=== PATIENT | male | born 1950 | race Caucasian/White ===

== ENCOUNTER 2020-07-18 12:57 | Inpatient (IN) ==
[2020-07-18] MEDS ORDERED: ALBUTEROL 2.5 MG/3 ML NEB RESP TX STA (14:47)
[2020-07-18] MEDS ORDERED: FUROSEMIDE 40 MG/4 ML VIAL IV STA (14:47)
[2020-07-18 15:22] LABS: Basophils # 0.1 10*3/uL (0.0-0.2); Basophils % 0.9 % (0.0-0.8); Eosinophils # 0.3 10*3/uL (0.0-0.87); Eosinophils % 3.7 % (0.00-10.9); Hematocrit 46.3 VOL% (42.0-52.0); Hemoglobin 14.3 GM/DL (14.0-18.0); Immature Granulocytes % 0.3 %; Immature Granulocytes Absolute 0.03 #; Lymphocytes # 1.3 10*3/uL (1.4-4.0); Mean Corpuscular HGB Conc 30.9 GM/DL (32-36); Mean Corpuscular Volume 101.8 FL (87-102); Mean Platelet Volume 9.4 FL (9.6-12.0); Monocytes % 8.6 % (1.7-12.7); Neutrophils % 71.5 % (38.7-73.9); Platelet Count 289 T/CUMM (130-400); Red Blood Count 4.55 MC/CUMM (3.8-5.5); Red Cell Distribution Width 13.4 % (9.3-17.3); White Blood Count 8.9 T/CUMM (4-12)
[2020-07-18] MEDS ORDERED: LEVOFLOXACIN INJ 500 MG in PREMIX 1 EACH IV STA (15:47)
[2020-07-18] MEDS ORDERED: methylPREDNISolone SOD SUC 125 MG/2 ML VIAL IV STA (15:47)
[2020-07-18 15:48] LABS: Albumin 3.2 G/DL (3.4-5.0); Bilirubin,Total 0.6 MG/DL (0.2-1.0); Calcium 9.1 MG/DL (8.5-10.1); Potassium 4.6 MMOL/L (3.5-5.1); Total Protein 7.8 G/DL (6.4-8.3)
[2020-07-18 15:56] LABS: ABG Base Excess 9.6 MMOL/L (-2.5-2.5); ABG HCO3 33.2 MMOL/L (20-26); ABG PH 7.352 (7.35-7.45); ABG PO2 64.1 MM HG (80-95); ABG TCO2 33.6 MMOL/L (23-27); Allen Test Positive
[2020-07-18 16:01] LABS: ABG PCO2 70.3 MM HG (35-48)
[2020-07-18] MEDS ORDERED: MAGNESIUM SULF RIDER 4 GM in PREMIX 1 EACH IV PRN (16:18)
[2020-07-18] MEDS ORDERED: ACETAMINOPHEN 325 MG TABLET PO PRN (16:18)
[2020-07-18] MEDS ORDERED: MAGNESIUM SULF RIDER 2 GM in PREMIX 1 EACH IV PRN (16:18)
[2020-07-18] MEDS ORDERED: GLUCAGON 1 MG VIAL IM PRN (16:18)
[2020-07-18] MEDS ORDERED: ZALEPLON 5 MG CAPSULE PO PRN (16:18)
[2020-07-18] MEDS ORDERED: ONDANSETRON 4 MG/2 ML VIAL IV PRN (16:18)
[2020-07-18] MEDS ORDERED: DEXTROSE 50% 25 GM/50 ML VIAL IV PRN (16:18)
[2020-07-18] MEDS: ALBUTEROL 2.5 MG/3 ML NEB RESP TX SCH (19:00)
[2020-07-18] MEDS: APIXABAN 5 MG TABLET PO SCH (20:16)
[2020-07-19] MEDS: methylPREDNISolone SOD SUC 40 MG/1 ML VIAL IV SCH ×3 (00:05→15:38)
[2020-07-19] MEDS: ALBUTEROL 2.5 MG/3 ML NEB RESP TX SCH ×4 (00:15→19:36)
[2020-07-19 06:36] LABS: Basophils % 0.1 % (0.0-0.8); Hematocrit 47.7 VOL% (42.0-52.0); Hemoglobin 14.8 GM/DL (14.0-18.0); Immature Granulocytes % 0.6 %; Immature Granulocytes Absolute 0.04 #; Lymphocytes # 0.4 10*3/uL (1.4-4.0); Lymphocytes % 5.9 % (21.2-54.2); Mean Corpuscular Volume 102.6 FL (87-102); Mean Platelet Volume 9.6 FL (9.6-12.0); Monocytes % 1.3 % (1.7-12.7); Neutrophils % 92.1 % (38.7-73.9); Platelet Count 296 T/CUMM (130-400); Red Blood Count 4.65 MC/CUMM (3.8-5.5); Red Cell Distribution Width 13.4 % (9.3-17.3); White Blood Count 7.2 T/CUMM (4-12)
[2020-07-19 07:00] LABS: Lymphocytes 7 % (20-55); Platelet Estimate Normal; Segmented Neutrophils 92 % (50-85); Total Cells Counted 100
[2020-07-19 07:08] LABS: Albumin 3.1 G/DL (3.4-5.0); Bilirubin,Total 0.8 MG/DL (0.2-1.0); Calcium 8.8 MG/DL (8.5-10.1)
[2020-07-19 07:16] LABS: Osmolality,Calculated 274.2 MOS/KG (273-304); Potassium 4.5 MMOL/L (3.5-5.1)
[2020-07-19] MEDS ORDERED: FUROSEMIDE 20 MG/2 ML VIAL IV SCH (08:00)
[2020-07-19] MEDS: amLODIPine 10 MG TABLET PO SCH (08:30)
[2020-07-19] MEDS: PANTOPRAZOLE 40 MG TABLET PO SCH (08:30)
[2020-07-19] MEDS: APIXABAN 5 MG TABLET PO SCH ×2 (08:30→21:46)
[2020-07-19] MEDS ORDERED: FUROSEMIDE 20 MG/2 ML VIAL IV ONE (08:59)
[2020-07-19] MEDS ORDERED: NEBIVOLOL 10 MG TABLET PO SCH (09:00)
[2020-07-19] MEDS ORDERED: ENOXAPARIN 40 MG/0.4 ML SYRINGE SUBCUT SCH (09:00)
[2020-07-19] MEDS ORDERED: METOPROLOL TARTRATE 50 MG TABLET PO SCH (09:37)
[2020-07-19] MEDS ORDERED: AZITHROMYCIN 250 MG TABLET PO ONE (13:03)
[2020-07-19] MEDS: FUROSEMIDE 40 MG/4 ML VIAL IV SCH (15:38)
[2020-07-19] MEDS: LEVOFLOXACIN INJ 750 MG in PREMIX 1 EACH IV SCH (15:39)
[2020-07-19] MEDS ORDERED: METOPROLOL TARTRATE 50 MG TABLET PO ONE (21:00)
[2020-07-20] MEDS: methylPREDNISolone SOD SUC 40 MG/1 ML VIAL IV SCH ×4 (00:38→23:28)
[2020-07-20] MEDS: ALBUTEROL 2.5 MG/3 ML NEB RESP TX SCH ×4 (01:08→19:50)
[2020-07-20 06:13] LABS: Basophils % 0.1 % (0.0-0.8); Hematocrit 46.1 VOL% (42.0-52.0); Hemoglobin 14.1 GM/DL (14.0-18.0); Immature Granulocytes % 0.6 %; Lymphocytes # 0.6 10*3/uL (1.4-4.0); Lymphocytes % 3.6 % (21.2-54.2); Mean Corpuscular HGB Conc 30.6 GM/DL (32-36); Mean Corpuscular Volume 104.5 FL (87-102); Mean Platelet Volume 9.6 FL (9.6-12.0); Monocytes % 3.6 % (1.7-12.7); Neutrophils % 92.1 % (38.7-73.9); Platelet Count 297 T/CUMM (130-400); Red Blood Count 4.41 MC/CUMM (3.8-5.5); Red Cell Distribution Width 13.3 % (9.3-17.3); White Blood Count 16.8 T/CUMM (4-12)
[2020-07-20 06:31] LABS: Calcium 8.8 MG/DL (8.5-10.1); Osmolality,Calculated 277.2 MOS/KG (273-304); Potassium 4.8 MMOL/L (3.5-5.1)
[2020-07-20 06:52] LABS: Calcium 8.5 MG/DL (8.5-10.1); Osmolality,Calculated 277.2 MOS/KG (273-304); Potassium 4.6 MMOL/L (3.5-5.1)
[2020-07-20] MEDS: amLODIPine 10 MG TABLET PO SCH (08:48)
[2020-07-20] MEDS: APIXABAN 5 MG TABLET PO SCH ×2 (08:49→20:58)
[2020-07-20] MEDS: PANTOPRAZOLE 40 MG TABLET PO SCH (08:49)
[2020-07-20] MEDS: FUROSEMIDE 40 MG/4 ML VIAL IV SCH ×2 (08:50→15:51)
[2020-07-20] MEDS: AZITHROMYCIN 250 MG TABLET PO SCH (08:53)
[2020-07-20] MEDS ORDERED: NEBIVOLOL 10 MG TABLET PO SCH (09:00)
[2020-07-20 15:27] LABS: Band Neutrophils 4 % (0-10); Lymphocytes 3 % (20-55); Macrocytosis 1+; Platelet Estimate Normal; Segmented Neutrophils 89 % (50-85); Total Cells Counted 100
[2020-07-20] MEDS: LEVOFLOXACIN INJ 750 MG in PREMIX 1 EACH IV SCH (15:52)
[2020-07-21] MEDS: ALBUTEROL 2.5 MG/3 ML NEB RESP TX SCH ×4 (01:24→18:56)
[2020-07-21 07:06] LABS: Basophils % 0.1 % (0.0-0.8); Hematocrit 46.3 VOL% (42.0-52.0); Hemoglobin 14.2 GM/DL (14.0-18.0); Immature Granulocytes % 0.6 %; Immature Granulocytes Absolute 0.09 #; Lymphocytes # 0.5 10*3/uL (1.4-4.0); Lymphocytes % 3.4 % (21.2-54.2); Mean Corpuscular HGB Conc 30.7 GM/DL (32-36); Mean Corpuscular Volume 103.8 FL (87-102); Mean Platelet Volume 9.4 FL (9.6-12.0); Monocytes % 4.3 % (1.7-12.7); Neutrophils % 91.6 % (38.7-73.9); Platelet Count 301 T/CUMM (130-400); Red Blood Count 4.46 MC/CUMM (3.8-5.5); Red Cell Distribution Width 13.4 % (9.3-17.3); White Blood Count 14.3 T/CUMM (4-12)
[2020-07-21 07:08] LABS: Calcium 8.7 MG/DL (8.5-10.1); Potassium 4.4 MMOL/L (3.5-5.1)
[2020-07-21] MEDS: APIXABAN 5 MG TABLET PO SCH ×2 (08:00→20:09)
[2020-07-21 08:05] LABS: Anisocytosis 1+; Band Neutrophils 2 % (0-10); Lymphocytes 2 % (20-55); Macrocytosis 1+; Platelet Estimate Normal; Segmented Neutrophils 90 % (50-85); Stomatocytes Few; Total Cells Counted 100
[2020-07-21] MEDS: FUROSEMIDE 40 MG/4 ML VIAL IV SCH ×2 (08:17→15:22)
[2020-07-21] MEDS: methylPREDNISolone SOD SUC 40 MG/1 ML VIAL IV SCH ×2 (08:17→15:22)
[2020-07-21] MEDS: amLODIPine 5 MG TABLET PO SCH (08:18)
[2020-07-21] MEDS: NEBIVOLOL 10 MG TABLET PO SCH (08:18)
[2020-07-21] MEDS: AZITHROMYCIN 250 MG TABLET PO SCH (08:18)
[2020-07-21] MEDS: PANTOPRAZOLE 40 MG TABLET PO SCH (08:18)
[2020-07-21] MEDS ORDERED: NEBIVOLOL 10 MG TABLET PO SCH (09:00)
[2020-07-21] MEDS: LEVOFLOXACIN INJ 750 MG in PREMIX 1 EACH IV SCH (15:31)
[2020-07-21] MEDS ORDERED: POLYETHYLENE GLYCOL POWDER 17 GM PACK PO PRN (21:13)
[2020-07-22] MEDS: methylPREDNISolone SOD SUC 40 MG/1 ML VIAL IV SCH ×3 (00:18→15:51)
[2020-07-22] MEDS: ALBUTEROL 2.5 MG/3 ML NEB RESP TX SCH ×4 (00:42→19:12)
[2020-07-22 04:25] LABS: Basophils % 0.1 % (0.0-0.8); Hematocrit 47.2 VOL% (42.0-52.0); Hemoglobin 14.4 GM/DL (14.0-18.0); Immature Granulocytes % 0.8 %; Immature Granulocytes Absolute 0.09 #; Lymphocytes # 0.4 10*3/uL (1.4-4.0); Lymphocytes % 3.3 % (21.2-54.2); Mean Corpuscular HGB Conc 30.5 GM/DL (32-36); Mean Corpuscular Volume 103.5 FL (87-102); Mean Platelet Volume 9.6 FL (9.6-12.0); Monocytes % 5.5 % (1.7-12.7); Neutrophils % 90.3 % (38.7-73.9); Platelet Count 295 T/CUMM (130-400); Red Blood Count 4.56 MC/CUMM (3.8-5.5); Red Cell Distribution Width 13.5 % (9.3-17.3); White Blood Count 11.8 T/CUMM (4-12)
[2020-07-22 04:46] LABS: Calcium 8.5 MG/DL (8.5-10.1); Osmolality,Calculated 280.1 MOS/KG (273-304); Potassium 4.4 MMOL/L (3.5-5.1)
[2020-07-22 08:42] LABS: Anisocytosis 1+; Macrocytosis 1+; Platelet Estimate Normal
[2020-07-22] MEDS: amLODIPine 5 MG TABLET PO SCH (08:42)
[2020-07-22] MEDS: APIXABAN 5 MG TABLET PO SCH ×2 (08:42→21:12)
[2020-07-22] MEDS: AZITHROMYCIN 250 MG TABLET PO SCH (08:42)
[2020-07-22] MEDS: NEBIVOLOL 10 MG TABLET PO SCH (08:42)
[2020-07-22] MEDS: PANTOPRAZOLE 40 MG TABLET PO SCH (08:42)
[2020-07-22] MEDS: FUROSEMIDE 40 MG/4 ML VIAL IV SCH (08:43)
[2020-07-22] MEDS ORDERED: guaiFENesin/CODEINE 5 ML LIQUID PO PRN (13:53)
[2020-07-22] MEDS: FUROSEMIDE 40 MG TABLET PO SCH (15:51)
[2020-07-22] MEDS: LEVOFLOXACIN INJ 750 MG in PREMIX 1 EACH IV SCH (15:52)
[2020-07-23] MEDS: ALBUTEROL 2.5 MG/3 ML NEB RESP TX SCH ×4 (00:32→19:35)
[2020-07-23] MEDS: methylPREDNISolone SOD SUC 40 MG/1 ML VIAL IV SCH ×4 (00:36→23:37)
[2020-07-23 06:50] LABS: Basophils % 0.1 % (0.0-0.8); Hematocrit 47.2 VOL% (42.0-52.0); Hemoglobin 14.5 GM/DL (14.0-18.0); Immature Granulocytes % 0.9 %; Immature Granulocytes Absolute 0.09 #; Lymphocytes # 0.4 10*3/uL (1.4-4.0); Lymphocytes % 4.2 % (21.2-54.2); Mean Corpuscular HGB Conc 30.7 GM/DL (32-36); Mean Corpuscular Volume 103.3 FL (87-102); Mean Platelet Volume 9.7 FL (9.6-12.0); Monocytes % 6.3 % (1.7-12.7); Neutrophils % 88.5 % (38.7-73.9); Platelet Count 281 T/CUMM (130-400); Red Blood Count 4.57 MC/CUMM (3.8-5.5); Red Cell Distribution Width 13.3 % (9.3-17.3); White Blood Count 10.6 T/CUMM (4-12)
[2020-07-23 07:13] LABS: Calcium 8.4 MG/DL (8.5-10.1); Potassium 4.1 MMOL/L (3.5-5.1)
[2020-07-23 07:29] LABS: Anisocytosis Slight; Band Neutrophils 3 % (0-10); Hypersegmented Neutrophil Few; Lymphocytes 3 % (20-55); Macrocytosis 1+; Nucleated Red Blood Cells 1 (0-5); Platelet Estimate Normal; Segmented Neutrophils 86 % (50-85); Smudge Cells Few; Stomatocytes 1+; Total Cells Counted 100
[2020-07-23] MEDS: APIXABAN 5 MG TABLET PO SCH ×2 (08:48→20:26)
[2020-07-23] MEDS: PANTOPRAZOLE 40 MG TABLET PO SCH (08:48)
[2020-07-23] MEDS: AZITHROMYCIN 250 MG TABLET PO SCH (08:48)
[2020-07-23] MEDS: NEBIVOLOL 10 MG TABLET PO SCH (08:48)
[2020-07-23] MEDS: amLODIPine 5 MG TABLET PO SCH (08:48)
[2020-07-23] MEDS: FUROSEMIDE 40 MG TABLET PO SCH (08:49)
[2020-07-23] MEDS: LEVOFLOXACIN 750 MG TABLET PO SCH (13:56)
[2020-07-23] MEDS: FUROSEMIDE 20 MG TABLET PO SCH (15:24)
[2020-07-24] MEDS: ALBUTEROL 2.5 MG/3 ML NEB RESP TX SCH ×2 (00:39→07:40)
[2020-07-24 07:53] VITALS: BP 159/79
[2020-07-24] MEDS: APIXABAN 5 MG TABLET PO SCH (08:43)
[2020-07-24] MEDS: PANTOPRAZOLE 40 MG TABLET PO SCH (08:43)
[2020-07-24] MEDS: AZITHROMYCIN 250 MG TABLET PO SCH (08:43)
[2020-07-24] MEDS: FUROSEMIDE 20 MG TABLET PO SCH (08:43)
[2020-07-24] MEDS: NEBIVOLOL 10 MG TABLET PO SCH (08:43)
[2020-07-24] MEDS: methylPREDNISolone SOD SUC 40 MG/1 ML VIAL IV SCH (08:43)
[2020-07-24] MEDS: amLODIPine 5 MG TABLET PO SCH (08:43)
[2020-07-24] MEDS: LEVOFLOXACIN 750 MG TABLET PO SCH (09:36)
== END 2020-07-24 11:15 | disposition home or self-care (01) | DRG 291 ==
LOC: N.ED 12:57 → N.EDINP 16:18 → N.5E 17:30
PROVIDERS: ADMIT Internal Medicine; ATTEND Internal Medicine

== ENCOUNTER 2021-11-12 17:33 | Inpatient (IN) ==
[2021-11-12 18:20] LABS: Basophils % 0.4 % (0.0-0.8); Eosinophils # 0.1 10*3/uL (0.0-0.87); Eosinophils % 2.6 % (0.00-10.9); Hematocrit 43.7 VOL% (42.0-52.0); Hemoglobin 13.4 GM/DL (14.0-18.0); Immature Granulocytes % 0.6 %; Immature Granulocytes Absolute 0.03 #; Lymphocytes # 0.9 10*3/uL (1.4-4.0); Lymphocytes % 18.5 % (21.2-54.2); Mean Corpuscular HGB Conc 30.7 GM/DL (32-36); Mean Corpuscular Volume 104.8 FL (87-102); Monocytes # 0.4 10*3/uL (0.11-0.8); Monocytes % 7.8 % (1.7-12.7); Neutrophils % 70.1 % (38.7-73.9); Platelet Count 266 T/CUMM (130-400); Red Blood Count 4.17 MC/CUMM (3.8-5.5); Red Cell Distribution Width 12.5 % (9.3-17.3)
[2021-11-12 18:48] LABS: Albumin 2.5 G/DL (3.4-5.0); Bilirubin,Total 0.6 MG/DL (0.20-1.00); Calcium 9.2 MG/DL (8.5-10.1); Osmolality,Calculated 275.8 MOS/KG (273-304); Potassium 3.6 MMOL/L (3.5-5.1); Total Protein 7.9 G/DL (6.4-8.2)
[2021-11-12] MEDS ORDERED: PIPERACILLIN/TAZOBACTAM 3,375 MG in SODIUM CHLORIDE 0.9% 100 ML IV STA (18:58)
[2021-11-12] MEDS ORDERED: methylPREDNISolone SOD SUC 125 MG/2 ML VIAL IV STA (18:58)
[2021-11-12] MEDS ORDERED: MORPHINE 2 MG/1 ML SYRINGE IV STA (18:58)
[2021-11-12] MEDS ORDERED: ALBUTEROL/IPRATROPIUM 3 ML NEB RESP TX STA (18:58)
[2021-11-12] MEDS ORDERED: FUROSEMIDE 100 MG/10 ML VIAL IV STA (18:58)
[2021-11-12] MEDS ORDERED: ONDANSETRON 4 MG/2 ML VIAL IV STA (18:58)
[2021-11-12] MEDS ORDERED: ALBUTEROL NEB SOLN 5 MG/ML 20 ML/BOTTLE CONT NEB SCH (19:00)
[2021-11-12] MEDS ORDERED: ALBUTEROL 2.5 MG/3 ML NEB RESP TX ONE (19:09)
[2021-11-12 19:30] LABS: Platelet Estimate Increased
[2021-11-12] MEDS ORDERED: GLUCAGON 1 MG VIAL IM PRN (21:35)
[2021-11-12] MEDS ORDERED: ACETAMINOPHEN 325 MG TABLET PO PRN (21:35)
[2021-11-12] MEDS ORDERED: ONDANSETRON 4 MG/2 ML VIAL IV PRN (21:35)
[2021-11-12] MEDS ORDERED: DEXTROSE 10% 250 ML BAG IV PRN (21:35)
[2021-11-12] MEDS ORDERED: ZALEPLON 5 MG CAPSULE PO PRN (21:35)
[2021-11-12] MEDS: carvediloL 12.5 MG TABLET PO SCH (22:50)
[2021-11-12] MEDS: APIXABAN 5 MG TABLET PO SCH (22:50)
[2021-11-12] MEDS: AZITHROMYCIN INJ 500 MG in SODIUM CHLORIDE 0.9% 250 ML IV SCH (22:50)
[2021-11-13] MEDS: cefTRIAXone 1,000 MG in SODIUM CHLORIDE 0.9% 100 ML IV SCH (01:43)
[2021-11-13 01:55] LABS: Basophils % 0.2 % (0.0-0.8); Eosinophils % 0.4 % (0.00-10.9); Hematocrit 41.3 VOL% (42.0-52.0); Hemoglobin 12.5 GM/DL (14.0-18.0); Immature Granulocytes % 0.6 %; Immature Granulocytes Absolute 0.03 #; Lymphocytes # 0.4 10*3/uL (1.4-4.0); Lymphocytes % 7.2 % (21.2-54.2); Mean Corpuscular HGB Conc 30.3 GM/DL (32-36); Mean Corpuscular Volume 107.3 FL (87-102); Mean Platelet Volume 8.8 FL (9.6-12.0); Monocytes # 0.1 10*3/uL (0.11-0.8); Monocytes % 2.3 % (1.7-12.7); Neutrophils % 89.3 % (38.7-73.9); Platelet Count 278 T/CUMM (130-400); Red Blood Count 3.85 MC/CUMM (3.8-5.5); Red Cell Distribution Width 12.5 % (9.3-17.3); White Blood Count 4.9 T/CUMM (4-12)
[2021-11-13] MEDS ORDERED: MELATONIN 3 MG TABLET PO PRN (02:08)
[2021-11-13] MEDS: ALBUTEROL/IPRATROPIUM 3 ML NEB RESP TX SCH ×3 (02:10→13:16)
[2021-11-13 02:13] LABS: Calcium 9.2 MG/DL (8.5-10.1); Osmolality,Calculated 275.1 MOS/KG (273-304); Potassium 4.1 MMOL/L (3.5-5.1)
[2021-11-13 02:23] LABS: INR 1.1; PT Patient Result 11.8 SECS (10.5-12.0)
[2021-11-13] MEDS ORDERED: methylPREDNISolone SOD SUC 40 MG/1 ML VIAL IV SCH (06:00)
[2021-11-13] MEDS ORDERED: REMDESIVIR 200 MG in SODIUM CHLORIDE 0.9% 210 ML IV ONE (09:00)
[2021-11-13] MEDS ORDERED: PANTOPRAZOLE 40 MG TABLET PO SCH (09:00)
[2021-11-13 11:16] LABS: Ferritin - (MMA) 273.1 ng/ml (22-336)
[2021-11-13] MEDS: FAMOTIDINE 20 MG TABLET PO SCH ×2 (11:24→20:47)
[2021-11-13] MEDS: ZINC GLUCONATE 50 MG TABLET PO SCH (11:24)
[2021-11-13] MEDS: ASCORBIC ACID 500 MG TABLET PO SCH ×2 (11:24→20:47)
[2021-11-13] MEDS: carvediloL 12.5 MG TABLET PO SCH ×2 (11:25→20:47)
[2021-11-13] MEDS: CETIRIZINE 10 MG TABLET PO SCH (11:25)
[2021-11-13] MEDS: DEXAMETHASONE 4 MG/1 ML VIAL IV SCH (11:25)
[2021-11-13] MEDS: CHOLECALCIFEROL 1,000 UNIT TABLET PO SCH (11:25)
[2021-11-13] MEDS: FUROSEMIDE 20 MG TABLET PO SCH (11:25)
[2021-11-13] MEDS: APIXABAN 5 MG TABLET PO SCH ×2 (11:26→20:47)
[2021-11-13] MEDS: amLODIPine 10 MG TABLET PO SCH (11:26)
[2021-11-13] MEDS ORDERED: ALBUTEROL INHALER 18 GM INH PRN (18:32)
[2021-11-13] MEDS: MELATONIN 3 MG TABLET PO SCH (20:46)
[2021-11-13] MEDS: AZITHROMYCIN INJ 500 MG in SODIUM CHLORIDE 0.9% 250 ML IV SCH (21:39)
[2021-11-14] MEDS: cefTRIAXone 1,000 MG in SODIUM CHLORIDE 0.9% 100 ML IV SCH (00:13)
[2021-11-14 06:08] LABS: Basophils % 0.1 % (0.0-0.8); Hemoglobin 12.4 GM/DL (14.0-18.0); Immature Granulocytes % 1.1 %; Immature Granulocytes Absolute 0.11 #; Lymphocytes # 0.9 10*3/uL (1.4-4.0); Lymphocytes % 8.5 % (21.2-54.2); Mean Corpuscular Volume 108.7 FL (87-102); Mean Platelet Volume 8.7 FL (9.6-12.0); Monocytes # 0.7 10*3/uL (0.11-0.8); Monocytes % 6.6 % (1.7-12.7); NRBC # 0.02 10*3/uL; Neutrophils % 83.7 % (38.7-73.9); Platelet Count 311 T/CUMM (130-400); Red Blood Count 3.81 MC/CUMM (3.8-5.5); Red Cell Distribution Width 12.4 % (9.3-17.3); White Blood Count 10.3 T/CUMM (4-12)
[2021-11-14 06:10] LABS: Hematocrit 41.4 VOL% (42.0-52.0)
[2021-11-14 07:16] LABS: Alanine Aminotransferase 17 U/L (16-61); Albumin 2.5 G/DL (3.4-5.0); Alkaline Phosphatase 100 U/L (45-117); Aspartate Amino Transferase 20 U/L (0-37); Blood Urea Nitrogen 22 MG/DL (7-18); Calcium 9.3 MG/DL (8.5-10.1); Potassium 4.9 MMOL/L (3.5-5.1); Sodium 136 MMOL/L (136-145); Total Protein 7.9 G/DL (6.4-8.2)
[2021-11-14 07:17] LABS: Carbon Dioxide 47 MMOL/L (21-32); Chloride 93 MMOL/L (98-107); Glucose 159 MG/DL (74-106)
[2021-11-14] MEDS ORDERED: LORazepam 1 MG TABLET PO PRN (10:28)
[2021-11-14] MEDS: APIXABAN 5 MG TABLET PO SCH ×2 (10:36→22:13)
[2021-11-14] MEDS: amLODIPine 10 MG TABLET PO SCH (10:37)
[2021-11-14] MEDS: FUROSEMIDE 20 MG TABLET PO SCH (10:37)
[2021-11-14] MEDS: ASCORBIC ACID 500 MG TABLET PO SCH ×2 (10:38→22:14)
[2021-11-14] MEDS: CETIRIZINE 10 MG TABLET PO SCH (10:38)
[2021-11-14] MEDS: CHOLECALCIFEROL 1,000 UNIT TABLET PO SCH (10:38)
[2021-11-14] MEDS: FAMOTIDINE 20 MG TABLET PO SCH ×2 (10:39→22:14)
[2021-11-14] MEDS: carvediloL 12.5 MG TABLET PO SCH ×2 (10:40→22:13)
[2021-11-14] MEDS: REMDESIVIR 100 MG in SODIUM CHLORIDE 0.9% 100 ML IV SCH (10:54)
[2021-11-14] MEDS: DEXAMETHASONE 4 MG/1 ML VIAL IV SCH (10:55)
[2021-11-14] MEDS: ZINC GLUCONATE 50 MG TABLET PO SCH (11:16)
[2021-11-14] MEDS: MORPHINE 2 MG/1 ML SYRINGE IV PRN (22:13)
[2021-11-14] MEDS: MELATONIN 3 MG TABLET PO SCH (22:13)
[2021-11-14] MEDS: AZITHROMYCIN INJ 500 MG in SODIUM CHLORIDE 0.9% 250 ML IV SCH (22:14)
[2021-11-15] MEDS: cefTRIAXone 1,000 MG in SODIUM CHLORIDE 0.9% 100 ML IV SCH (01:40)
[2021-11-15] MEDS: carvediloL 12.5 MG TABLET PO SCH ×3 (07:28→21:36)
[2021-11-15] MEDS: APIXABAN 5 MG TABLET PO SCH ×3 (07:28→21:36)
[2021-11-15] MEDS: MELATONIN 3 MG TABLET PO SCH ×2 (07:28→21:36)
[2021-11-15] MEDS: FAMOTIDINE 20 MG TABLET PO SCH ×3 (07:29→21:36)
[2021-11-15] MEDS: ASCORBIC ACID 500 MG TABLET PO SCH ×3 (07:29→21:36)
[2021-11-15 08:21] LABS: Basophils % 0.1 % (0.0-0.8); Eosinophils % 0.1 % (0.00-10.9); Immature Granulocytes % 3.8 %; Immature Granulocytes Absolute 0.54 #; Lymphocytes # 0.7 10*3/uL (1.4-4.0); Lymphocytes % 5.2 % (21.2-54.2); Mean Corpuscular HGB Conc 29.3 GM/DL (32-36); Mean Corpuscular Volume 112.2 FL (87-102); Mean Platelet Volume 8.6 FL (9.6-12.0); Monocytes # 1.4 10*3/uL (0.11-0.8); Monocytes % 9.5 % (1.7-12.7); NRBC # 0.05 10*3/uL; Neutrophils % 81.3 % (38.7-73.9); Platelet Count 426 T/CUMM (130-400); Red Cell Distribution Width 12.6 % (9.3-17.3); White Blood Count 14.1 T/CUMM (4-12)
[2021-11-15 08:22] LABS: Hemoglobin 13.5 GM/DL (14.0-18.0)
[2021-11-15 08:35] LABS: Lymphocytes 4 % (20-55); Platelet Estimate Adequate; Total Cells Counted 100
[2021-11-15 08:47] LABS: Albumin 2.8 G/DL (3.4-5.0); Bilirubin,Total 0.7 MG/DL (0.20-1.00); Calcium 9.2 MG/DL (8.5-10.1); Osmolality,Calculated 281.1 MOS/KG (273-304); Potassium 5.9 MMOL/L (3.5-5.1); Total Protein 8.2 G/DL (6.4-8.2)
[2021-11-15] MEDS ORDERED: SODIUM POLYSTYRENE SULFATE 15 GM/60 ML BOTTLE PO ONE (09:20)
[2021-11-15 09:21] LABS: Arterial PCO2 iSTAT > 130 MM HG (35-48); Arterial PO2 iSTAT 190 MM HG (80-95); Arterial pH iSTAT 7.094 (7.35-7.45)
[2021-11-15 09:28] LABS: Arterial PCO2 iSTAT > 130 MM HG (35-48); Arterial PO2 iSTAT 190 MM HG (80-95)
[2021-11-15] MEDS ORDERED: ETOMIDATE 20 MG/10 ML VIAL IV ONE ×3 (09:36→09:50)
[2021-11-15] MEDS ORDERED: SUCCINYLCHOLINE 200 MG/10 ML VIAL ONE (09:36)
[2021-11-15] MEDS ORDERED: SUCCINYLCHOLINE 200 MG/10 ML VIAL IV ONE (09:42)
[2021-11-15] MEDS ORDERED: SODIUM CHLORIDE 0.9% 500 ML IV ONE (10:37)
[2021-11-15] MEDS ORDERED: ROCURONIUM 500 MG in SODIUM CHLORIDE 0.9% 500 ML IV PRN (11:28)
[2021-11-15] MEDS: MIDAZOLAM 100 MG in SODIUM CHLORIDE 0.9% 80 ML IV PRN (11:28)
[2021-11-15 12:31] LABS: ABG Base Excess 16.1 MMOL/L (-2.5-2.5); ABG HCO3 40.2 MMOL/L (20-26); ABG Oxygen Saturation 99.9 % (95-100); ABG PH 7.344 (7.35-7.45); ABG TCO2 41.6 MMOL/L (23-27)
[2021-11-15 12:33] LABS: ABG PCO2 85.7 MM HG (35-48)
[2021-11-15] MEDS: FUROSEMIDE 20 MG TABLET PO SCH (12:50)
[2021-11-15] MEDS: ZINC GLUCONATE 50 MG TABLET PO SCH (12:50)
[2021-11-15] MEDS: CETIRIZINE 10 MG TABLET PO SCH (12:50)
[2021-11-15] MEDS: DEXAMETHASONE 4 MG/1 ML VIAL IV SCH (12:50)
[2021-11-15] MEDS: CHOLECALCIFEROL 1,000 UNIT TABLET PO SCH (12:50)
[2021-11-15] MEDS: REMDESIVIR 100 MG in SODIUM CHLORIDE 0.9% 100 ML IV SCH (12:58)
[2021-11-15] MEDS: fentaNYL INJ 1,250 MCG in SODIUM CHLORIDE 0.9% 225 ML IV PRN ×2 (12:58→23:24)
[2021-11-15 13:00] LABS: Hyaline Casts,Urine 3 /LPF (0-3); Mucus,Urine Occasional /LPF (Occasional); RBC,Urine 2 /HPF (0-4)
[2021-11-15] MEDS: amLODIPine 10 MG TABLET PO SCH (13:00)
[2021-11-15 13:03] LABS: Bilirubin,Urine Negative (Negative); Blood, Urine Negative (Negative); Glucose,Urine (UA) Negative (Negative); Ketones,Urine Negative (Negative); Nitrite,Urine Negative (Negative); Protein,Urine 30 mg/dL (Negative); Urine Appearance Clear (Clear); Urine Color Yellow (Yellow); Urine pH 5.5 (4.5-8.0)
[2021-11-15 13:12] LABS: Urine Specific Gravity 1.018 (1.001-1.035)
[2021-11-15] MEDS: AZITHROMYCIN INJ 500 MG in SODIUM CHLORIDE 0.9% 250 ML IV SCH (21:36)
[2021-11-16] MEDS: cefTRIAXone 1,000 MG in SODIUM CHLORIDE 0.9% 100 ML IV SCH (00:04)
[2021-11-16 04:49] LABS: Red Cell Distribution Width 12.2 % (9.3-17.3)
[2021-11-16 04:50] LABS: ABG Base Excess 20.2 MMOL/L (-2.5-2.5); ABG HCO3 44.8 MMOL/L (20-26); ABG Oxygen Saturation 99.1 % (95-100); ABG PCO2 52.3 MM HG (35-48); ABG PH 7.554 (7.35-7.45)
[2021-11-16 05:00] LABS: Basophils % 0.1 % (0.0-0.8); Immature Granulocytes % 1.7 %; Immature Granulocytes Absolute 0.13 #; Lymphocytes # 0.6 10*3/uL (1.4-4.0); Lymphocytes % 7.7 % (21.2-54.2); Mean Corpuscular HGB Conc 30.3 GM/DL (32-36); Mean Corpuscular Volume 108.2 FL (87-102); Mean Platelet Volume 9.2 FL (9.6-12.0); Monocytes # 0.8 10*3/uL (0.11-0.8); Monocytes % 10.6 % (1.7-12.7); NRBC # 0.02 10*3/uL; Neutrophils % 79.9 % (38.7-73.9); Red Blood Count 3.42 MC/CUMM (3.8-5.5)
[2021-11-16 05:02] LABS: Hemoglobin 11.2 GM/DL (14.0-18.0); Platelet Count 294 T/CUMM (130-400); White Blood Count 7.6 T/CUMM (4-12)
[2021-11-16 06:46] LABS: Alanine Aminotransferase 52 U/L (16-61); Albumin 2.2 G/DL (3.4-5.0); Alkaline Phosphatase 74 U/L (45-117); Aspartate Amino Transferase 57 U/L (0-37); Blood Urea Nitrogen 49 MG/DL (7-18); Calcium 8.6 MG/DL (8.5-10.1); Carbon Dioxide 45 MMOL/L (21-32); Chloride 93 MMOL/L (98-107); Glucose 138 MG/DL (74-106); Osmolality,Calculated 291.5 MOS/KG (273-304); Potassium 4.1 MMOL/L (3.5-5.1); Sodium 139 MMOL/L (136-145); Total Protein 6.2 G/DL (6.4-8.2)
[2021-11-16] MEDS: DEXAMETHASONE 4 MG/1 ML VIAL IV SCH (08:39)
[2021-11-16] MEDS: ASCORBIC ACID 500 MG TABLET PO SCH ×2 (08:40→21:15)
[2021-11-16] MEDS: CETIRIZINE 10 MG TABLET PO SCH (08:40)
[2021-11-16] MEDS: CHOLECALCIFEROL 1,000 UNIT TABLET PO SCH (08:40)
[2021-11-16] MEDS: ZINC GLUCONATE 50 MG TABLET PO SCH (08:40)
[2021-11-16] MEDS: FUROSEMIDE 20 MG TABLET PO SCH (08:40)
[2021-11-16] MEDS: carvediloL 12.5 MG TABLET PO SCH ×2 (08:40→21:15)
[2021-11-16] MEDS: APIXABAN 5 MG TABLET PO SCH ×2 (08:40→21:15)
[2021-11-16] MEDS: amLODIPine 10 MG TABLET PO SCH (08:41)
[2021-11-16] MEDS: FAMOTIDINE 20 MG TABLET PO SCH ×2 (08:41→21:15)
[2021-11-16] MEDS: REMDESIVIR 100 MG in SODIUM CHLORIDE 0.9% 100 ML IV SCH (10:32)
[2021-11-16] MEDS: fentaNYL INJ 1,250 MCG in SODIUM CHLORIDE 0.9% 225 ML IV PRN ×2 (11:51→23:02)
[2021-11-16] MEDS: MIDAZOLAM 100 MG in SODIUM CHLORIDE 0.9% 80 ML IV PRN (11:54)
[2021-11-16] MEDS: FLUCONAZOLE INJ 400 MG/200 ML PREMIX IV SCH (17:52)
[2021-11-16] MEDS: MELATONIN 3 MG TABLET PO SCH (21:16)
[2021-11-16] MEDS: AZITHROMYCIN INJ 500 MG in SODIUM CHLORIDE 0.9% 250 ML IV SCH (22:59)
[2021-11-17] MEDS: cefTRIAXone 1,000 MG in SODIUM CHLORIDE 0.9% 100 ML IV SCH ×2 (00:26→23:08)
[2021-11-17 03:50] LABS: ABG Base Excess 13.3 MMOL/L (-2.5-2.5); ABG HCO3 37.2 MMOL/L (20-26); ABG PCO2 47.7 MM HG (35-48); ABG PH 7.513 (7.35-7.45); ABG TCO2 33.9 MMOL/L (23-27)
[2021-11-17 03:54] LABS: Basophils % 0.1 % (0.0-0.8); Hematocrit 37.1 VOL% (42.0-52.0); Hemoglobin 11.4 GM/DL (14.0-18.0); Immature Granulocytes % 0.8 %; Immature Granulocytes Absolute 0.07 #; Lymphocytes # 0.6 10*3/uL (1.4-4.0); Lymphocytes % 6.6 % (21.2-54.2); Mean Corpuscular HGB Conc 30.7 GM/DL (32-36); Mean Corpuscular Volume 104.2 FL (87-102); Mean Platelet Volume 9.5 FL (9.6-12.0); Monocytes # 0.8 10*3/uL (0.11-0.8); Monocytes % 9.2 % (1.7-12.7); Neutrophils % 83.3 % (38.7-73.9); Platelet Count 321 T/CUMM (130-400); Red Blood Count 3.56 MC/CUMM (3.8-5.5); Red Cell Distribution Width 12.3 % (9.3-17.3)
[2021-11-17 04:30] LABS: Bilirubin,Total 0.61 MG/DL (0.20-1.00); Calcium 8.5 MG/DL (8.5-10.1); Total Protein 6.4 G/DL (6.4-8.2)
[2021-11-17 04:31] LABS: Albumin 2.2 G/DL (3.4-5.0); Osmolality,Calculated 297.3 MOS/KG (273-304); Potassium 3.7 MMOL/L (3.5-5.1)
[2021-11-17] MEDS: FUROSEMIDE 20 MG TABLET PO SCH (08:17)
[2021-11-17] MEDS: carvediloL 12.5 MG TABLET PO SCH ×2 (08:17→21:03)
[2021-11-17] MEDS: amLODIPine 10 MG TABLET PO SCH (08:17)
[2021-11-17] MEDS: CHOLECALCIFEROL 1,000 UNIT TABLET PO SCH (08:17)
[2021-11-17] MEDS: ZINC GLUCONATE 50 MG TABLET PO SCH (08:17)
[2021-11-17] MEDS: CETIRIZINE 10 MG TABLET PO SCH (08:17)
[2021-11-17] MEDS: APIXABAN 5 MG TABLET PO SCH ×2 (08:18→21:04)
[2021-11-17] MEDS: DEXAMETHASONE 4 MG/1 ML VIAL IV SCH (08:18)
[2021-11-17] MEDS: FAMOTIDINE 20 MG TABLET PO SCH ×2 (08:18→21:03)
[2021-11-17] MEDS: ASCORBIC ACID 500 MG TABLET PO SCH ×2 (08:18→21:04)
[2021-11-17] MEDS: REMDESIVIR 100 MG in SODIUM CHLORIDE 0.9% 100 ML IV SCH (09:22)
[2021-11-17] MEDS: fentaNYL INJ 1,250 MCG in SODIUM CHLORIDE 0.9% 225 ML IV PRN ×2 (11:56→22:59)
[2021-11-17 12:19] LABS: ABG Base Excess 10.2 MMOL/L (-2.5-2.5); ABG Oxygen Saturation 98.7 % (95-100); ABG PH 7.413 (7.35-7.45); ABG TCO2 32.9 MMOL/L (23-27)
[2021-11-17] MEDS: AZITHROMYCIN INJ 500 MG in SODIUM CHLORIDE 0.9% 250 ML IV SCH (14:11)
[2021-11-17] MEDS: FLUCONAZOLE INJ 400 MG/200 ML PREMIX IV SCH (16:09)
[2021-11-17] MEDS: MELATONIN 3 MG TABLET PO SCH (21:04)
[2021-11-18 04:40] LABS: ABG HCO3 31.8 MMOL/L (20-26); ABG Oxygen Saturation 98.3 % (95-100); ABG PCO2 52.4 MM HG (35-48); ABG PH 7.421 (7.35-7.45); ABG TCO2 30.2 MMOL/L (23-27); Basophils % 0.1 % (0.0-0.8); Hematocrit 38.4 VOL% (42.0-52.0); Lymphocytes # 0.5 10*3/uL (1.4-4.0); Lymphocytes % 5.1 % (21.2-54.2); Mean Corpuscular HGB Conc 31.3 GM/DL (32-36); Mean Corpuscular Volume 102.9 FL (87-102); Mean Platelet Volume 9.6 FL (9.6-12.0); Monocytes # 0.8 10*3/uL (0.11-0.8); Monocytes % 8.1 % (1.7-12.7); Neutrophils % 85.7 % (38.7-73.9); Platelet Count 389 T/CUMM (130-400); Red Blood Count 3.73 MC/CUMM (3.8-5.5); Red Cell Distribution Width 12.7 % (9.3-17.3); White Blood Count 10.1 T/CUMM (4-12)
[2021-11-18] MEDS: MIDAZOLAM 100 MG in SODIUM CHLORIDE 0.9% 80 ML IV PRN (04:59)
[2021-11-18 05:00] LABS: Albumin 2.1 G/DL (3.4-5.0); Bilirubin,Total 0.7 MG/DL (0.20-1.00); Calcium 8.8 MG/DL (8.5-10.1); Osmolality,Calculated 293.3 MOS/KG (273-304); Potassium 4.4 MMOL/L (3.5-5.1); Total Protein 6.1 G/DL (6.4-8.2)
[2021-11-18 05:14] LABS: Phosphorous 3.4 MG/DL (2.5-4.9)
[2021-11-18] MEDS: fentaNYL INJ 1,250 MCG in SODIUM CHLORIDE 0.9% 225 ML IV PRN ×2 (08:03→16:06)
[2021-11-18] MEDS: amLODIPine 10 MG TABLET PO SCH (10:33)
[2021-11-18] MEDS: CHOLECALCIFEROL 1,000 UNIT TABLET PO SCH (10:33)
[2021-11-18] MEDS: ZINC GLUCONATE 50 MG TABLET PO SCH (10:33)
[2021-11-18] MEDS: carvediloL 12.5 MG TABLET PO SCH ×2 (10:33→21:05)
[2021-11-18] MEDS: FUROSEMIDE 20 MG TABLET PO SCH (10:33)
[2021-11-18] MEDS: FAMOTIDINE 20 MG TABLET PO SCH ×2 (10:34→21:05)
[2021-11-18] MEDS: CETIRIZINE 10 MG TABLET PO SCH (10:34)
[2021-11-18] MEDS: DEXAMETHASONE 4 MG/1 ML VIAL IV SCH (10:34)
[2021-11-18] MEDS: APIXABAN 5 MG TABLET PO SCH ×2 (10:35→21:05)
[2021-11-18] MEDS: ASCORBIC ACID 500 MG TABLET PO SCH ×2 (10:37→21:05)
[2021-11-18] MEDS ORDERED: DEXTROSE 50% 25 GM/50 ML VIAL IV PRN (12:53)
[2021-11-18] MEDS: AZITHROMYCIN INJ 500 MG in SODIUM CHLORIDE 0.9% 250 ML IV SCH (13:50)
[2021-11-18] MEDS: POLYETHYLENE GLYCOL POWDER 17 GM PACK PO SCH (13:50)
[2021-11-18] MEDS: FLUCONAZOLE INJ 400 MG/200 ML PREMIX IV SCH (16:07)
[2021-11-18] MEDS: FUROSEMIDE 40 MG/4 ML VIAL IV SCH (16:07)
[2021-11-18] MEDS: MELATONIN 3 MG TABLET PO SCH (21:05)
[2021-11-19] MEDS: cefTRIAXone 1,000 MG in SODIUM CHLORIDE 0.9% 100 ML IV SCH (00:47)
[2021-11-19] MEDS: fentaNYL INJ 1,250 MCG in SODIUM CHLORIDE 0.9% 225 ML IV PRN ×2 (03:59→14:40)
[2021-11-19 04:34] LABS: ABG Base Excess 8.9 MMOL/L (-2.5-2.5); ABG HCO3 32.6 MMOL/L (20-26); ABG Oxygen Saturation 95.7 % (95-100); ABG PCO2 47.5 MM HG (35-48); ABG PH 7.465 (7.35-7.45); ABG PO2 81.1 MM HG (80-95); ABG TCO2 29.5 MMOL/L (23-27)
[2021-11-19 05:05] LABS: Albumin 2.1 G/DL (3.4-5.0); Bilirubin,Total 0.7 MG/DL (0.20-1.00); Calcium 8.6 MG/DL (8.5-10.1); Osmolality,Calculated 297.1 MOS/KG (273-304); Potassium 4.3 MMOL/L (3.5-5.1); Total Protein 6.1 G/DL (6.4-8.2)
[2021-11-19 05:17] LABS: Folate 7.8 NG/ML (5.38-24.0)
[2021-11-19 05:32] LABS: Thyroid Stimulating Hormone 0.288 uIU/ml (0.358-3.74)
[2021-11-19] MEDS: FAMOTIDINE 20 MG TABLET PO SCH ×2 (09:52→20:08)
[2021-11-19] MEDS: CHOLECALCIFEROL 1,000 UNIT TABLET PO SCH (09:52)
[2021-11-19] MEDS: DEXAMETHASONE 4 MG/1 ML VIAL IV SCH (09:53)
[2021-11-19] MEDS: FUROSEMIDE 40 MG/4 ML VIAL IV SCH (09:54)
[2021-11-19] MEDS: amLODIPine 10 MG TABLET PO SCH (09:55)
[2021-11-19] MEDS: carvediloL 12.5 MG TABLET PO SCH ×2 (09:55→20:08)
[2021-11-19] MEDS: CETIRIZINE 10 MG TABLET PO SCH (09:55)
[2021-11-19] MEDS: ASCORBIC ACID 500 MG TABLET PO SCH ×2 (09:56→20:08)
[2021-11-19] MEDS: APIXABAN 5 MG TABLET PO SCH ×2 (09:56→20:08)
[2021-11-19] MEDS: POLYETHYLENE GLYCOL POWDER 17 GM PACK PO SCH (09:57)
[2021-11-19] MEDS: ZINC GLUCONATE 50 MG TABLET PO SCH (09:57)
[2021-11-19 10:33] LABS: Basophils % 0.1 % (0.0-0.8); Hematocrit 39.9 VOL% (42.0-52.0); Hemoglobin 12.5 GM/DL (14.0-18.0); Immature Granulocytes % 0.9 %; Immature Granulocytes Absolute 0.09 #; Lymphocytes # 0.6 10*3/uL (1.4-4.0); Lymphocytes % 5.3 % (21.2-54.2); Mean Corpuscular HGB Conc 31.3 GM/DL (32-36); Mean Corpuscular Volume 103.4 FL (87-102); Mean Platelet Volume 9.9 FL (9.6-12.0); Monocytes # 1.1 10*3/uL (0.11-0.8); Monocytes % 10.3 % (1.7-12.7); Neutrophils % 83.4 % (38.7-73.9); Platelet Count 440 T/CUMM (130-400); Red Blood Count 3.86 MC/CUMM (3.8-5.5); Red Cell Distribution Width 12.7 % (9.3-17.3); White Blood Count 10.5 T/CUMM (4-12)
[2021-11-19] MEDS: METOCLOPRAMIDE 10 MG/2 ML VIAL IV SCH ×2 (12:23→17:04)
[2021-11-19] MEDS: AZITHROMYCIN INJ 500 MG in SODIUM CHLORIDE 0.9% 250 ML IV SCH (12:37)
[2021-11-19] MEDS: FLUCONAZOLE INJ 400 MG/200 ML PREMIX IV SCH (17:04)
[2021-11-19] MEDS: MELATONIN 3 MG TABLET PO SCH (20:07)
[2021-11-20] MEDS: METOCLOPRAMIDE 10 MG/2 ML VIAL IV SCH ×4 (00:27→17:38)
[2021-11-20] MEDS: cefTRIAXone 1,000 MG in SODIUM CHLORIDE 0.9% 100 ML IV SCH (00:27)
[2021-11-20] MEDS: fentaNYL INJ 1,250 MCG in SODIUM CHLORIDE 0.9% 225 ML IV PRN ×2 (01:54→12:58)
[2021-11-20 03:54] LABS: ABG Base Excess 9.4 MMOL/L (-2.5-2.5); ABG HCO3 33.1 MMOL/L (20-26); ABG Oxygen Saturation 94.9 % (95-100); ABG PCO2 50.4 MM HG (35-48); ABG PH 7.452 (7.35-7.45); ABG PO2 81.4 MM HG (80-95); ABG TCO2 30.8 MMOL/L (23-27)
[2021-11-20 03:56] LABS: Basophils % 0.1 % (0.0-0.8); Hematocrit 41.1 VOL% (42.0-52.0); Hemoglobin 12.8 GM/DL (14.0-18.0); Immature Granulocytes % 1.2 %; Immature Granulocytes Absolute 0.12 #; Lymphocytes # 0.4 10*3/uL (1.4-4.0); Lymphocytes % 4.1 % (21.2-54.2); Mean Corpuscular HGB Conc 31.1 GM/DL (32-36); Mean Platelet Volume 10.1 FL (9.6-12.0); Monocytes # 1.2 10*3/uL (0.11-0.8); Monocytes % 11.5 % (1.7-12.7); Neutrophils % 83.1 % (38.7-73.9); Platelet Count 452 T/CUMM (130-400); Red Blood Count 3.99 MC/CUMM (3.8-5.5); Red Cell Distribution Width 12.8 % (9.3-17.3); White Blood Count 10.1 T/CUMM (4-12)
[2021-11-20 04:09] LABS: Calcium 8.4 MG/DL (8.5-10.1); Osmolality,Calculated 306.8 MOS/KG (273-304); Potassium 4.7 MMOL/L (3.5-5.1)
[2021-11-20] MEDS: APIXABAN 5 MG TABLET PO SCH ×2 (09:53→20:49)
[2021-11-20] MEDS: CHOLECALCIFEROL 1,000 UNIT TABLET PO SCH (09:53)
[2021-11-20] MEDS: CETIRIZINE 10 MG TABLET PO SCH (09:53)
[2021-11-20] MEDS: FAMOTIDINE 20 MG TABLET PO SCH ×2 (09:53→20:49)
[2021-11-20] MEDS: ASCORBIC ACID 500 MG TABLET PO SCH ×2 (09:53→20:49)
[2021-11-20] MEDS: ZINC GLUCONATE 50 MG TABLET PO SCH (09:53)
[2021-11-20] MEDS: POLYETHYLENE GLYCOL POWDER 17 GM PACK PO SCH (09:54)
[2021-11-20] MEDS: FUROSEMIDE 40 MG/4 ML VIAL IV SCH (09:54)
[2021-11-20] MEDS: amLODIPine 10 MG TABLET PO SCH (09:54)
[2021-11-20] MEDS: DEXMEDETOMIDINE 200 MCG in SODIUM CHLORIDE 0.9% 48 ML IV PRN ×4 (09:55→23:40)
[2021-11-20] MEDS: carvediloL 12.5 MG TABLET PO SCH ×2 (09:55→20:49)
[2021-11-20] MEDS: DEXAMETHASONE 4 MG/1 ML VIAL IV SCH (09:55)
[2021-11-20] MEDS: AZITHROMYCIN INJ 500 MG in SODIUM CHLORIDE 0.9% 250 ML IV SCH (13:30)
[2021-11-20] MEDS: FLUCONAZOLE INJ 400 MG/200 ML PREMIX IV SCH (17:15)
[2021-11-20] MEDS: MELATONIN 3 MG TABLET PO SCH (20:49)
[2021-11-21] MEDS: fentaNYL INJ 1,250 MCG in SODIUM CHLORIDE 0.9% 225 ML IV PRN ×2 (00:10→13:19)
[2021-11-21] MEDS: METOCLOPRAMIDE 10 MG/2 ML VIAL IV SCH ×4 (00:40→17:17)
[2021-11-21] MEDS: DEXMEDETOMIDINE 200 MCG in SODIUM CHLORIDE 0.9% 48 ML IV PRN ×5 (04:35→20:33)
[2021-11-21 05:00] LABS: Basophils % 0.1 % (0.0-0.8); Hematocrit 46.1 VOL% (42.0-52.0); Hemoglobin 14.1 GM/DL (14.0-18.0); Immature Granulocytes % 0.9 %; Immature Granulocytes Absolute 0.09 #; Lymphocytes # 0.5 10*3/uL (1.4-4.0); Lymphocytes % 4.7 % (21.2-54.2); Mean Corpuscular HGB Conc 30.6 GM/DL (32-36); Mean Corpuscular Volume 104.8 FL (87-102); Mean Platelet Volume 10.2 FL (9.6-12.0); Monocytes # 1.2 10*3/uL (0.11-0.8); Neutrophils % 82.3 % (38.7-73.9); Platelet Count 454 T/CUMM (130-400); Red Cell Distribution Width 12.6 % (9.3-17.3); White Blood Count 10.2 T/CUMM (4-12)
[2021-11-21 05:16] LABS: Phosphorous 4.4 MG/DL (2.5-4.9)
[2021-11-21 05:21] LABS: Calcium 8.8 MG/DL (8.5-10.1); Ferritin 370.5 ng/mL (26-388); Lymphocytes 5 % (20-55); Osmolality,Calculated 306.7 MOS/KG (273-304); Platelet Estimate Adequate; Total Cells Counted 100
[2021-11-21 06:28] LABS: ABG Base Excess 10.3 MMOL/L (-2.5-2.5); ABG Oxygen Saturation 97.6 % (95-100); ABG PCO2 47.3 MM HG (35-48); ABG PH 7.483 (7.35-7.45); ABG TCO2 30.3 MMOL/L (23-27)
[2021-11-21] MEDS: POLYETHYLENE GLYCOL POWDER 17 GM PACK PO SCH (09:21)
[2021-11-21] MEDS: CETIRIZINE 10 MG TABLET PO SCH (09:21)
[2021-11-21] MEDS: amLODIPine 10 MG TABLET PO SCH (09:21)
[2021-11-21] MEDS: carvediloL 12.5 MG TABLET PO SCH ×2 (09:22→20:33)
[2021-11-21] MEDS: FAMOTIDINE 20 MG TABLET PO SCH ×2 (09:22→20:33)
[2021-11-21] MEDS: CHOLECALCIFEROL 1,000 UNIT TABLET PO SCH (09:22)
[2021-11-21] MEDS: APIXABAN 5 MG TABLET PO SCH ×2 (09:22→20:33)
[2021-11-21] MEDS: ZINC GLUCONATE 50 MG TABLET PO SCH (09:22)
[2021-11-21] MEDS: ASCORBIC ACID 500 MG TABLET PO SCH ×2 (09:22→20:32)
[2021-11-21] MEDS: DEXAMETHASONE 4 MG/1 ML VIAL IV SCH (09:23)
[2021-11-21] MEDS: FUROSEMIDE 40 MG/4 ML VIAL IV SCH (09:23)
[2021-11-21 15:52] LABS: ABG Base Excess 10.6 MMOL/L (-2.5-2.5); ABG HCO3 34.3 MMOL/L (20-26); ABG PCO2 59.5 MM HG (35-48); ABG PH 7.414 (7.35-7.45); ABG PO2 84.8 MM HG (80-95); ABG TCO2 32.6 MMOL/L (23-27)
[2021-11-21] MEDS: FLUCONAZOLE INJ 400 MG/200 ML PREMIX IV SCH (17:17)
[2021-11-21] MEDS: MELATONIN 3 MG TABLET PO SCH (20:32)
[2021-11-21] MEDS ORDERED: DEXMEDETOMIDINE 400 MCG in SODIUM CHLORIDE 0.9% 46 ML IV PRN (23:00)
[2021-11-22] MEDS: METOCLOPRAMIDE 10 MG/2 ML VIAL IV SCH ×2 (00:25→05:58)
[2021-11-22 04:07] LABS: Basophils % 0.1 % (0.0-0.8); Hemoglobin 14.3 GM/DL (14.0-18.0); Immature Granulocytes % 0.9 %; Lymphocytes # 0.5 10*3/uL (1.4-4.0); Lymphocytes % 4.3 % (21.2-54.2); Mean Corpuscular HGB Conc 31.1 GM/DL (32-36); Mean Corpuscular Volume 104.8 FL (87-102); Mean Platelet Volume 10.2 FL (9.6-12.0); Monocytes # 1.6 10*3/uL (0.11-0.8); Monocytes % 13.6 % (1.7-12.7); Neutrophils % 81.1 % (38.7-73.9); Platelet Count 486 T/CUMM (130-400); Red Blood Count 4.39 MC/CUMM (3.8-5.5); Red Cell Distribution Width 12.8 % (9.3-17.3); White Blood Count 11.4 T/CUMM (4-12)
[2021-11-22 04:21] LABS: Calcium 8.8 MG/DL (8.5-10.1); Osmolality,Calculated 310.4 MOS/KG (273-304); Potassium 4.9 MMOL/L (3.5-5.1)
[2021-11-22 04:29] LABS: Lymphocytes 9 % (20-55); Platelet Estimate Normal; Total Cells Counted 100
[2021-11-22 04:30] LABS: Macrocytosis 1+
[2021-11-22] MEDS: fentaNYL INJ 1,250 MCG in SODIUM CHLORIDE 0.9% 225 ML IV PRN (04:42)
[2021-11-22 05:03] LABS: Arterial Base Excess iSTAT 15 MMOL/L (-2.5-2.5); Arterial O2 Saturation iSTAT 100 % (95-100); Arterial PCO2 iSTAT 47 MM HG (35-48); Arterial PO2 iSTAT 166 MM HG (80-95); Arterial Total CO2 iSTAT 41 MMO/L (23-27); Arterial pH iSTAT 7.538 (7.35-7.45)
[2021-11-22] MEDS ORDERED: DEXAMETHASONE 4 MG/1 ML VIAL IV SCH (09:00)
[2021-11-22] MEDS: POLYETHYLENE GLYCOL POWDER 17 GM PACK PO SCH (09:04)
[2021-11-22] MEDS: ASCORBIC ACID 500 MG TABLET PO SCH ×2 (09:05→20:06)
[2021-11-22] MEDS: FAMOTIDINE 20 MG TABLET PO SCH ×2 (09:05→20:06)
[2021-11-22] MEDS: carvediloL 12.5 MG TABLET PO SCH ×2 (09:05→20:06)
[2021-11-22] MEDS: APIXABAN 5 MG TABLET PO SCH ×2 (09:05→20:06)
[2021-11-22] MEDS: amLODIPine 10 MG TABLET PO SCH (09:05)
[2021-11-22] MEDS: CHOLECALCIFEROL 1,000 UNIT TABLET PO SCH (09:05)
[2021-11-22] MEDS: CETIRIZINE 10 MG TABLET PO SCH (09:05)
[2021-11-22] MEDS: ZINC GLUCONATE 50 MG TABLET PO SCH (09:05)
[2021-11-22] MEDS ORDERED: MELATONIN 3 MG TABLET PO PRN (11:51)
[2021-11-22] MEDS: FLUCONAZOLE INJ 400 MG/200 ML PREMIX IV SCH (16:23)
[2021-11-22] MEDS: MORPHINE 2 MG/1 ML SYRINGE IV PRN (21:24)
[2021-11-23 04:22] LABS: ABG Base Excess 11.2 MMOL/L (-2.5-2.5); ABG HCO3 34.9 MMOL/L (20-26); ABG Oxygen Saturation 93.6 % (95-100); ABG PCO2 55.9 MM HG (35-48); ABG PH 7.442 (7.35-7.45); ABG PO2 70.3 MM HG (80-95); ABG TCO2 32.5 MMOL/L (23-27)
[2021-11-23 05:15] LABS: Albumin 2.5 G/DL (3.4-5.0); Bilirubin,Total 1.6 MG/DL (0.20-1.00); Calcium 8.9 MG/DL (8.5-10.1); Ferritin 424.1 ng/mL (26-388); Osmolality,Calculated 308.4 MOS/KG (273-304); Total Protein 6.5 G/DL (6.4-8.2)
[2021-11-23 05:16] LABS: Basophils % 0.1 % (0.0-0.8); Immature Granulocytes % 1.2 %; Immature Granulocytes Absolute 0.17 #; Lymphocytes # 0.6 10*3/uL (1.4-4.0); Lymphocytes % 4.3 % (21.2-54.2); Mean Corpuscular HGB Conc 30.7 GM/DL (32-36); Mean Platelet Volume 10.3 FL (9.6-12.0); Monocytes # 1.8 10*3/uL (0.11-0.8); Monocytes % 12.3 % (1.7-12.7); Neutrophils % 82.1 % (38.7-73.9); Platelet Count 561 T/CUMM (130-400); Red Blood Count 4.33 MC/CUMM (3.8-5.5); Red Cell Distribution Width 12.7 % (9.3-17.3); White Blood Count 14.5 T/CUMM (4-12)
[2021-11-23 05:18] LABS: Hematocrit 45.9 VOL% (42.0-52.0); Hemoglobin 14.1 GM/DL (14.0-18.0)
[2021-11-23 05:27] LABS: Lymphocytes 10 % (20-55); Total Cells Counted 100
[2021-11-23 05:28] LABS: Macrocytosis 1+; Platelet Estimate Increased
[2021-11-23] MEDS: POLYETHYLENE GLYCOL POWDER 17 GM PACK PO SCH (08:50)
[2021-11-23] MEDS: APIXABAN 5 MG TABLET PO SCH ×2 (08:51→20:43)
[2021-11-23] MEDS: CHOLECALCIFEROL 1,000 UNIT TABLET PO SCH (08:51)
[2021-11-23] MEDS: carvediloL 12.5 MG TABLET PO SCH ×2 (08:51→20:43)
[2021-11-23] MEDS: ASCORBIC ACID 500 MG TABLET PO SCH ×2 (08:52→20:43)
[2021-11-23] MEDS: ZINC GLUCONATE 50 MG TABLET PO SCH (08:52)
[2021-11-23] MEDS: CETIRIZINE 10 MG TABLET PO SCH (08:53)
[2021-11-23] MEDS: FAMOTIDINE 20 MG TABLET PO SCH ×2 (08:53→20:43)
[2021-11-23] MEDS: MORPHINE 2 MG/1 ML SYRINGE IV PRN (09:35)
[2021-11-23] MEDS: amLODIPine 10 MG TABLET PO SCH (10:21)
[2021-11-23] MEDS ORDERED: DEXTROSE 10% 250 ML BAG IV PRN (10:31)
[2021-11-23] MEDS: predniSONE 20 MG TABLET PO SCH (12:05)
[2021-11-23] MEDS: INSULIN LISPRO 100 UNIT/ML SUBCUT SCH ×3 (12:06→20:37)
[2021-11-23] MEDS: FLUCONAZOLE INJ 400 MG/200 ML PREMIX IV SCH (17:14)
[2021-11-24] MEDS: hydrALAZINE 20 MG/1 ML VIAL IV PRN ×2 (01:17→17:37)
[2021-11-24 05:03] LABS: ABG HCO3 34.7 MMOL/L (20-26); ABG PCO2 46.4 MM HG (35-48); ABG PH 7.498 (7.35-7.45); ABG PO2 66.5 MM HG (80-95); ABG TCO2 30.6 MMOL/L (23-27)
[2021-11-24] MEDS: INSULIN LISPRO 100 UNIT/ML SUBCUT SCH ×4 (08:12→21:59)
[2021-11-24] MEDS: POLYETHYLENE GLYCOL POWDER 17 GM PACK PO SCH (10:01)
[2021-11-24] MEDS: CHOLECALCIFEROL 1,000 UNIT TABLET PO SCH (10:02)
[2021-11-24] MEDS: APIXABAN 5 MG TABLET PO SCH ×2 (10:02→21:58)
[2021-11-24] MEDS: CETIRIZINE 10 MG TABLET PO SCH (10:02)
[2021-11-24] MEDS: predniSONE 20 MG TABLET PO SCH (10:02)
[2021-11-24] MEDS: FAMOTIDINE 20 MG TABLET PO SCH ×2 (10:02→21:59)
[2021-11-24] MEDS: amLODIPine 10 MG TABLET PO SCH (10:03)
[2021-11-24] MEDS: ZINC GLUCONATE 50 MG TABLET PO SCH (10:03)
[2021-11-24] MEDS: ASCORBIC ACID 500 MG TABLET PO SCH ×2 (10:03→21:58)
[2021-11-24] MEDS: carvediloL 12.5 MG TABLET PO SCH ×2 (10:03→21:59)
[2021-11-24 11:13] LABS: Basophils % 0.1 % (0.0-0.8); Eosinophils # 0.1 10*3/uL (0.0-0.87); Eosinophils % 0.8 % (0.00-10.9); Hematocrit 47.1 VOL% (42.0-52.0); Hemoglobin 14.8 GM/DL (14.0-18.0); Immature Granulocytes Absolute 0.15 #; Lymphocytes # 1.2 10*3/uL (1.4-4.0); Lymphocytes % 7.5 % (21.2-54.2); Mean Corpuscular HGB Conc 31.4 GM/DL (32-36); Mean Corpuscular Volume 103.1 FL (87-102); Mean Platelet Volume 10.5 FL (9.6-12.0); Monocytes # 2.5 10*3/uL (0.11-0.8); Neutrophils % 74.6 % (38.7-73.9); Platelet Count 608 T/CUMM (130-400); Red Blood Count 4.57 MC/CUMM (3.8-5.5); Red Cell Distribution Width 12.7 % (9.3-17.3); White Blood Count 15.4 T/CUMM (4-12)
[2021-11-24 11:28] LABS: Calcium 8.9 MG/DL (8.5-10.1); Potassium 4.6 MMOL/L (3.5-5.1)
[2021-11-24 11:32] LABS: Osmolality,Calculated 291.4 MOS/KG (273-304)
[2021-11-24 12:52] LABS: Lymphocytes 7 % (20-55); Ovalocytes Slight; Platelet Estimate Increased; Polychromasia Slight; Stomatocytes Few; Total Cells Counted 100
[2021-11-24] MEDS: HALOPERIDOL 5 MG/ML AMP IM PRN (13:15)
[2021-11-25] MEDS: HALOPERIDOL 5 MG/ML AMP IM PRN (00:46)
[2021-11-25 07:16] LABS: Basophils % 0.2 % (0.0-0.8); Eosinophils # 0.1 10*3/uL (0.0-0.87); Eosinophils % 0.8 % (0.00-10.9); Hematocrit 48.4 VOL% (42.0-52.0); Hemoglobin 15.4 GM/DL (14.0-18.0); Immature Granulocytes % 1.3 %; Immature Granulocytes Absolute 0.23 #; Lymphocytes # 1.2 10*3/uL (1.4-4.0); Lymphocytes % 6.9 % (21.2-54.2); Mean Corpuscular HGB Conc 31.8 GM/DL (32-36); Mean Corpuscular Volume 102.5 FL (87-102); Mean Platelet Volume 10.4 FL (9.6-12.0); Monocytes # 2.6 10*3/uL (0.11-0.8); Monocytes % 14.6 % (1.7-12.7); Neutrophils % 76.2 % (38.7-73.9); Platelet Count 620 T/CUMM (130-400); Red Blood Count 4.72 MC/CUMM (3.8-5.5); Red Cell Distribution Width 12.9 % (9.3-17.3); White Blood Count 17.9 T/CUMM (4-12)
[2021-11-25] MEDS: INSULIN LISPRO 100 UNIT/ML SUBCUT SCH ×2 (07:25→12:30)
[2021-11-25 07:36] LABS: Calcium 9.1 MG/DL (8.5-10.1); Osmolality,Calculated 294.1 MOS/KG (273-304); Potassium 4.5 MMOL/L (3.5-5.1)
[2021-11-25] MEDS: ZINC GLUCONATE 50 MG TABLET PO SCH (08:55)
[2021-11-25] MEDS: POLYETHYLENE GLYCOL POWDER 17 GM PACK PO SCH (08:55)
[2021-11-25] MEDS: FAMOTIDINE 20 MG TABLET PO SCH (08:56)
[2021-11-25] MEDS: CETIRIZINE 10 MG TABLET PO SCH (08:56)
[2021-11-25] MEDS: CHOLECALCIFEROL 1,000 UNIT TABLET PO SCH (08:56)
[2021-11-25] MEDS: predniSONE 20 MG TABLET PO SCH (08:56)
[2021-11-25] MEDS: ASCORBIC ACID 500 MG TABLET PO SCH (08:56)
[2021-11-25] MEDS: carvediloL 12.5 MG TABLET PO SCH (08:56)
[2021-11-25] MEDS: APIXABAN 5 MG TABLET PO SCH (08:56)
[2021-11-25] MEDS: amLODIPine 10 MG TABLET PO SCH (08:56)
[2021-11-25] MEDS ORDERED: BUDESONIDE/FORMOTEROL 160-4.5 INHALER 6 GM INH SCH (10:00)
[2021-11-25 12:06] VITALS: BP 117/98
[2021-11-26] MEDS ORDERED: predniSONE 10 MG TABLET PO SCH (09:00)
== END 2021-11-25 13:24 | DRG 207 ==
LOC: N.ED 17:33 → SUATTDRO 21:37 → N.TELEN 21:37 → N.CC 11-15 09:22
PROVIDERS: ADMIT Internal Medicine; ATTEND Internal Medicine